=== PATIENT | female | born 1960 | race Hispanic/Latino ===

== ENCOUNTER 2025-01-19 12:19 | Emergency (ER) | payer SELFPAY ==
[~2025-01-19] VITALS: Ht 154.9 cm; Wt 61.2 kg
[2025-01-19] MEDS ORDERED: NITROFURANTOIN50 MG PO (13:45)
[2025-01-19] MEDS ORDERED: LOSARTAN POTASS25 MG PO (13:45)
[2025-01-19] MEDS ORDERED: METFORMIN HCL500 MG PO (13:45)
[2025-01-19 15:09] LABS: BASOPHILS % 0.4 % (0.0-1.0); EOSINOPHILS # (AUTO) 0.1 (0.0-0.4); EOSINOPHILS % 1.3 % (0.0-6.0); HEMATOCRIT 44.1 % (34.2-44.1); HEMOGLOBIN 15.1 g/dL (12.0-16.0); LYMPHOCYTES % 32.2 % (18.0-39.1); MEAN CORPUSCULAR HEMOGLOBIN 30.5 pg (28-32); MEAN CORPUSCULAR HGB CONC 34.2 g/dL (31-35); MEAN CORPUSCULAR VOLUME 89.1 fL (81-99); MONOCYTES # (AUTO) 0.5 (0.2-0.8); MONOCYTES % 5.4 % (4.4-11.3); NEUTROPHILS # (AUTO) 5.6 (2.1-6.9); NEUTROPHILS % 60.5 % (38.7-80.0); PLATELET COUNT 177 x10e3/uL (140-360); RED BLOOD COUNT 4.95 x10e6/uL (3.6-5.1); RED CELL DISTRIBUTION WIDTH 11.9 % (11.7-14.4); WHITE BLOOD COUNT 9.23 x10e3/uL (4.8-10.8)
[2025-01-19] MEDS: SODIUM CHLORIDE 0.9% 1000ML 1,000 ML IV STA (15:25)
[2025-01-19] MEDS: CLONIDINE HCL 0.1 MG TAB PO ONE (15:26)
[2025-01-19 15:43] LABS: INR 0.92; PROTHROMBIN TIME 13.2 seconds (11.9-14.5)
[2025-01-19 15:44] LABS: PARTIAL THROMBOPLASTIN TIME 30.1 seconds (23.8-35.5)
[2025-01-19 15:51] LABS: ALBUMIN 4.5 g/dL (3.5-5.0); ALBUMIN/GLOBULIN RATIO 1.3 (0.8-2.0); ANION GAP 16.9 mmol/L (8-16); BILIRUBIN,TOTAL 0.9 mg/dL (0.2-1.2); CALCIUM 9.8 mg/dL (8.4-10.2); CREATININE, SERUM 0.8 mg/dL (0.57-1.11); MAGNESIUM 1.9 MG/DL (1.3-2.1); POTASSIUM 3.9 mmol/L (3.5-5.1)
[2025-01-19 16:16] LABS: TROPONIN I 0.004 ng/mL (0-0.300)
[2025-01-19 16:30] VITALS: BP 145/64; PULSE 71; RESP 18
[2025-01-19 18:00] VITALS: PULSE 65; RESP 18; TEMP 98; O2SAT 98
== END 2025-01-19 18:06 | disposition home or self-care (01) ==
LOC: ER 14:40
DX: I10 Essential (primary) hypertension (principal); E11.65 Type 2 diabetes mellitus with hyperglycemia; R53.83 Other fatigue; R14.2 Eructation; R94.31 Abnormal electrocardiogram [ECG] [EKG]
CPT/HCPCS: 36415; 71045; 80053; 82550; 83735; 83880; 84484; 85025; 85610; 85730; 93005; 99283; J7030